=== PATIENT | male | born 1990 | race Caucasian/White ===

== ENCOUNTER 2018-11-19 01:27 | Emergency (ER) | payer BC ==
[2018-11-19 01:33] VITALS: BP 124/62
[2018-11-19] MEDS ORDERED: Tetracaine HCl/PF 0.5% 4 ML Bottle ONE (01:38)
[2018-11-19] MEDS ORDERED: Balanced Salt Solution Ophth Irrig 30 ML Bottle ONE (01:43)
[2018-11-19] MEDS ORDERED: Bacitracin/Polymyxin B Ophth Oint 3.5 GM Tube ONE (01:51)
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
== END 2018-11-19 02:35 | disposition home or self-care (01) ==
LOC: LL.ED 01:27
DX: S05.02XA Injury of conjunctiva and corneal abrasion without foreign body, left eye, initial encounter (principal); S05.01XA Injury of conjunctiva and corneal abrasion without foreign body, right eye, initial encounter; W89.0XXA Exposure to welding light (arc), initial encounter; Y99.0 Civilian activity done for income or pay
CPT/HCPCS: 99282; A9270

== ENCOUNTER 2025-03-18 10:22 | Day surgery (SDC) | payer BC ==
[~2025-03-18 10:22] MED LIST: Midazolam 1 MG/ML 2 ML SDV ONE; Propofol 200 MG/20 ML SDV ONE; Sodium Chloride 0.9% 10 ML Syringe FLUSH PRN
[2025-03-18] MEDS: Lactated Ringers 1,000 ML IV SCH (11:11)
[2025-03-18] MEDS ORDERED: Ketamine 500 mg/10 ML MDV ONE (11:50)
[2025-03-18] MEDS ORDERED: Ketamine 500 mg/10 ML MDV IV ONE (11:53)
[2025-03-18 13:05] VITALS: BP 118/80; PULSE 69
== END 2025-03-18 13:30 | disposition home or self-care (01) ==
LOC: LL.SDS 10:22
PROVIDERS: ATTEND Surgery
DX: K29.50 Unspecified chronic gastritis without bleeding (principal); K31.89 Other diseases of stomach and duodenum; K21.00 Gastro-esophageal reflux disease with esophagitis, without bleeding; K62.5 Hemorrhage of anus and rectum; K64.8 Other hemorrhoids; Z79.01 Long term (current) use of anticoagulants; Z79.899 Other long term (current) drug therapy
CPT/HCPCS: 00813; J1596; J2250; J2704; J3490; J7120